=== PATIENT | male | born 1995 | race Two or more races ===

== ENCOUNTER 2021-03-28 19:22 | Emergency (ER) | payer SELFPAY ==
[~2021-03-28] VITALS: Ht 180.3 cm; Wt 88.5 kg
[2021-03-28 19:22] VITALS: BP 135/70
--- NOTE | 2021-03-28 20:10 | NUR ---
Patient discharged to home in stable condition. Pt did not want to wait for d/c papers but fully understands all d/c teaching. Pt was seen and evaluated by GUSTABO Farfan.
== END 2021-03-28 20:11 | disposition home or self-care (01) ==
LOC: ER 19:24
DX: F11.23 Opioid dependence with withdrawal (principal)